=== PATIENT | female | born 1950 | race Caucasian/White ===

== ENCOUNTER → 2018-10-09 08:08 | Outpatient (CLI) | payer MEDICARE, SELFPAY ==
[2018-10-09 08:32] LABS: Add Manual Diff / Slide Review NO; Basophils Absolute Auto 0 /uL (0-100); Eosinophils Absolute Auto 100 /uL (0-450); Eosinophils Percent Auto 2.9 % (2-4); Hematocrit 35.3 % (36-46); Hemoglobin 12.2 g/dL (12.0-16.0); Lymphocytes Absolute Auto 500 /uL (1100-4500); Lymphocytes Percent Auto 20.1 % (25-40); Mean Corpuscular HGB Conc 34.5 % (30-36); Mean Corpuscular Hemoglobin 34.7 PG (26-34); Mean Corpuscular Volume 100.5 fL (80-100); Monocytes Absolute Auto 900 /uL (0-900); Monocytes Percent Auto 38.5 % (3-14); Neutrophils Absolute Auto 900 /uL (1500-7000); Neutrophils Percent Auto 36.5 % (50-75); Platelet Count 214 X10^3/uL (150-400); Red Blood Cell Count 3.52 X10^6/uL (4.0-5.2); Red Cell Distribution Width 16.5 % (11.6-14.8); White Blood Cell Count 2.5 X10^3/uL (4.5-11.0)
== END ==
DX: C50.312 Malignant neoplasm of lower-inner quadrant of left female breast (principal)
CPT/HCPCS: 36415; 85025

== ENCOUNTER → 2018-11-17 09:08 | Outpatient (CLI) | payer MEDICARE, SELFPAY ==
[2018-11-17 09:36] LABS: Hematocrit 38.6 % (36-46); Hemoglobin 13.4 g/dL (12.0-16.0); Mean Corpuscular HGB Conc 34.7 % (30-36); Mean Corpuscular Hemoglobin 36.5 PG (26-34); Mean Corpuscular Volume 105.2 fL (80-100); Platelet Count 51 X10^3/uL (150-400); Red Blood Cell Count 3.67 X10^6/uL (4.0-5.2); Red Cell Distribution Width 17.8 % (11.6-14.8)
[2018-11-17 09:44] LABS: White Blood Cell Count 1.3 X10^3/uL (4.5-11.0)
[2018-11-17 09:45] LABS: Add Manual Diff / Slide Review YES
[2018-11-17 10:02] LABS: Neutrophils Absolute Manual 416 /uL (3000-5900); Total Cells Counted 50
[2018-11-17 10:03] LABS: Anisocytosis 1+; Macrocytosis 2+; Ovalocytes 1+
[2018-11-17 10:04] LABS: Platelet Estimate Decreased on smear
== END ==
PROVIDERS: Visit Provider Internal Medicine Hematology & Oncology
DX: C50.312 Malignant neoplasm of lower-inner quadrant of left female breast (principal)
CPT/HCPCS: 36415; 85025